=== PATIENT | male | born 1950 | race Caucasian/White ===

== ENCOUNTER 2018-01-18 16:01 | Observation (INO) | payer OTHER ==
[~2018-01-18] VITALS: Ht 172.7 cm; Wt 100.8 kg
[~2018-01-18 16:01] MED LIST: ATORVASTATIN CA40 MG PO; DIO80 PO; METOPROLOL25 MG PO; PLA75
[2018-01-18 17:09] LABS: BASOPHIL % 0.2 % (0-2); PLATELET COUNT 236 x10^3mcL (130-400); RED CELL DISTRIBUTION WIDTH 13.5 % (11.5-14.5)
[2018-01-18 17:11] LABS: CALCIUM 8.7 mg/dL (8.5-10.1); CARBON DIOXIDE 23.6 mmol/L (21-32); CHLORIDE SERUM 105 mmol/L (98-107); CREATININE SERUM 1.2 mg/dL (0.7-1.3); GLUCOSE SERUM 188 mg/dL (74-106); POTASSIUM SERUM 3.6 mmol/L (3.5-5.1); SODIUM SERUM 141 mmol/L (136-145)
[2018-01-18 17:16] LABS: ALBUMIN 3.9 g/dL (3.4-5.0); ALKALINE PHOSPHATASE 98 U/L (46-116); ALT/SGPT 46 U/L (16-63); AST/SGOT 30 U/L (15-37); BILIRUBIN TOTAL 0.77 mg/dL (0.20-1.00); TOTAL PROTEIN, SERUM 7.5 g/dL (6.4-8.2)
[2018-01-18 20:32] VITALS: BP 146/86
[2018-01-18 20:38] VITALS: Ht 172.7 cm; Wt 100.8 kg
[2018-01-18 21:00] LABS: T3 TOTAL 1.18 ng/mL
[2018-01-18 21:14] LABS: FREE T4 1.21 ng/dL (0.76-1.46); FREE THYROXINE INDEX 3.1 ug/dL (1.4-4.5); T4(THYROXINE) 8.7 ug/dL (4.7-13.3)
[2018-01-18 21:24] LABS: CHOLESTEROL/HDL RATIO 2.5
[2018-01-18] MEDS ORDERED: PRASUGREL HCL10 MG PO (21:55)
[2018-01-18 22:39] LABS: microscopic required? YES; urine erythrocyte TRACE (NEGATIVE)
[2018-01-18 23:13] LABS: AMPHETAMINE QUAL UR NONE DETECTED (See below)
[2018-01-19 05:48] VITALS: BP 133/81
[2018-01-19 06:22] LABS: BASOPHIL % 0.1 % (0-2); PLATELET COUNT 227 x10^3mcL (130-400); RED CELL DISTRIBUTION WIDTH 13.1 % (11.5-14.5)
[2018-01-19 06:28] LABS: CALCIUM 8.8 mg/dL (8.5-10.1); CARBON DIOXIDE 24.2 mmol/L (21-32); CHLORIDE SERUM 106 mmol/L (98-107); GLUCOSE SERUM 133 mg/dL (74-106); MAGNESIUM 2.1 mg/dL (1.8-2.4); PHOSPHOROUS 2.4 mg/dL (2.5-4.9); SODIUM SERUM 139 mmol/L (136-145)
[2018-01-19 06:50] LABS: CREATININE SERUM 0.9 mg/dL (0.7-1.3); GFR1 > 60 mL/min
[2018-01-19 08:29] VITALS: BP 135/88
[2018-01-19] MEDS ORDERED: TOP50 PO (08:42)
[2018-01-19 09:27] VITALS: BP 142/77
== END 2018-01-19 10:00 | disposition home or self-care (01) | DRG 308 ==
LOC: ED 16:01 → DU 19:31
PROVIDERS: Family Medicine
DX: I47.1 Supraventricular tachycardia (principal); N17.0 Acute kidney failure with tubular necrosis; I25.9 Chronic ischemic heart disease, unspecified; E83.42 Hypomagnesemia; E83.39 Other disorders of phosphorus metabolism; T43.615A Adverse effect of caffeine, initial encounter; R73.03 Prediabetes; I10 Essential (primary) hypertension; I25.10 Atherosclerotic heart disease of native coronary artery without angina pectoris; Z95.5 Presence of coronary angioplasty implant and graft; Y92.009 Unspecified place in unspecified non-institutional (private) residence as the place of occurrence of the external cause
CPT/HCPCS: 83880; 84439; 85378; G0378; J1644; J3475; J7030